=== PATIENT | female | born 1995 | race Caucasian/White ===

== ENCOUNTER 2020-03-09 10:03 | Outpatient (CLI) | payer MEDICAID, OTHER ==
[~2020-03-09] VITALS: Ht 157.5 cm; Wt 79.0 kg
== END 2020-03-09 12:00 | disposition home or self-care (01) ==
LOC: LDOP 10:03
PROVIDERS: ATTEND Obstetrics & Gynecology
DX: O26.893 Other specified pregnancy related conditions, third trimester (principal); R10.9 Unspecified abdominal pain; Z3A.37 37 weeks gestation of pregnancy
CPT/HCPCS: 59025; 99201; G0463

== ENCOUNTER 2020-03-14 22:50 | Outpatient (CLI) | payer MEDICAID | END 2020-03-15 01:00 | disposition home or self-care (01) | LOC: LDOP 22:50 | PROVIDERS: ATTEND Obstetrics & Gynecology | DX: O42.92 Full-term premature rupture of membranes, unspecified as to length of time between rupture and onset of labor (principal); R10.9 Unspecified abdominal pain; Z3A.38 38 weeks gestation of pregnancy | CPT/HCPCS: 59025; 84112; 99211; G0463 ==

== ENCOUNTER 2020-03-17 01:15 | Inpatient (IN) | payer MEDICAID ==
[~2020-03-17] VITALS: Ht 157.5 cm; Wt 80.0 kg
[2020-03-17] MEDS: D5%-LACTATED RINGERS 1,000 ML IV SCH ×2 (01:23→05:44)
[2020-03-17] MEDS ORDERED: LACTATED RINGERS 1,000 ML IV SCH ×2 (01:23→03:53)
[2020-03-17] MEDS ORDERED: FENTANYL/BUPIV./NS/PF 250 ML EPIDCONT SCH ×2 (01:23→03:53)
[2020-03-17] MEDS ORDERED: OXYTOCIN 30U/ 0.9% NaCL 500ML 500 ML IV ONE (01:23)
[2020-03-17] MEDS ORDERED: ONDANSETRON 2MG/ML, 2ML ONE (01:26)
[2020-03-17] MEDS ORDERED: NEWBORN KIT ONE (01:26)
[2020-03-17] MEDS ORDERED: OXYTOCIN 30U/ 0.9% NaCL 500ML 500 ML ONE ×2 (01:26→12:52)
[2020-03-17] MEDS ORDERED: FENTANYL PF 100 MCG/2ML ONE ×2 (01:26→02:24)
[2020-03-17] MEDS ORDERED: VANCOMYCIN PMX 1GM/200ML 200 ML IVPB SCH (01:30)
[2020-03-17] MEDS ORDERED: FENTANYL PF 100 MCG/2ML IVPush PRN (01:30)
[2020-03-17] MEDS ORDERED: TERBUTALINE 1 MG/ML, 1ML SQ PRN (01:30)
[2020-03-17] MEDS ORDERED: TERBUTALINE 1 MG/ML, 1ML IVPush PRN (01:30)
[2020-03-17] MEDS ORDERED: CALCIUM CARBONATE 500 MG TAB.CHEW PO PRN (01:30)
[2020-03-17] MEDS ORDERED: ONDANSETRON 2MG/ML, 2ML IVPush PRN (01:30)
[2020-03-17] MEDS ORDERED: LACTATED RINGERS 1,000 ML IVBOLUS PRN ×2 (01:30→04:00)
[2020-03-17] MEDS ORDERED: EPHEDRINE 50 MG/ML, 1ML IVPush PRN ×2 (01:30→04:00)
[2020-03-17] MEDS ORDERED: FENTANYL PF 100 MCG/2ML IV PRN (01:30)
[2020-03-17] MEDS: LACTATED RINGERS 1,000 ML IV SCH ×3 (01:35→12:10)
[2020-03-17 01:56] VITALS: BP 135/82
[2020-03-17] MEDS ORDERED: DIPHENHYDRAMINE 50 MG/ML, 1ML ONE (02:05)
[2020-03-17 02:09] LABS: MEAN CORPUSCULAR HEMOGLOBIN 28.2 pg (27.0-34.8); MEAN CORPUSCULAR HGB CONC 33.2 g/dL (32.4-35.8); MEAN CORPUSCULAR VOLUME 84.8 fL (80-100); MEAN PLATELET VOLUME 11.2 fL (7.4-10.4); PLATELET COUNT 264 x10^3/uL (130-400); RED BLOOD COUNT 3.79 x10^6/uL (3.82-5.3); RED CELL DISTRIBUTION WIDTH 16.5 % (9.6-15.2)
[2020-03-17 02:16] LABS: BASOPHILS # (AUTO) 0.03 x10^3/uL (0-0.1); BASOPHILS % (AUTO) 0 % (0-1); EOSINOPHILS # (AUTO) 0.03 x10^3/uL (0-0.4); EOSINOPHILS % (AUTO) 0 % (1-7); LYMPHOCYTES # (AUTO) 1.63 x10^3/uL (1-3.4); LYMPHOCYTES % (AUTO) 13 % (22-44); MD MORPH REVIEW ONLY; MONOCYTES # (AUTO) 0.48 x10^3/uL (0.2-0.8); MONOCYTES % (AUTO) 4 % (2-9); NEUTROPHILS # (AUTO) 10.67 x10^3/uL (1.8-6.8); NEUTROPHILS % (AUTO) 83 % (42-75)
[2020-03-17 02:17] LABS: ANISOCYTOSIS 1+
[2020-03-17 02:18] LABS: <PLATELET ESTIMATE> ADEQUATE; LARGE PLATELETS 1+
[2020-03-17] MEDS ORDERED: DIPHENHYDRAMINE 50 MG/ML, 1ML IVPush PRN (02:30)
[2020-03-17] MEDS ORDERED: BUPIVACAINE 0.25% ONE (03:55)
[2020-03-17] MEDS ORDERED: NALOXONE 0.4 MG/ML, 1ML IVPush PRN (04:00)
[2020-03-17] MEDS ORDERED: FENTANYL/BUPIV./NS/PF 250 ML EPIDCONT ONE (04:01)
[2020-03-17 05:06] VITALS: BP 136/60
[2020-03-17] MEDS: OXYTOCIN 30U/ 0.9% NaCL 500ML 500 ML IV SCH ×2 (12:45→22:43)
[2020-03-17] MEDS ORDERED: MISOPROSTOL 200 MCG TABLET PR PRN (14:00)
[2020-03-17] MEDS ORDERED: OXYcodone/APAP 5/325MG TABLET PO PRN (14:00)
[2020-03-17] MEDS ORDERED: CARBOPROST TROMETHAMINE 250 MCG/ML, 1ML IM PRN (14:00)
[2020-03-17] MEDS ORDERED: SIMETHICONE 80 MG CHEW TAB PO PRN (14:00)
[2020-03-17] MEDS: IBUPROFEN 600 MG TABLET PO PRN (14:29)
[2020-03-17] MEDS: OXYcodone/APAP 5/325MG TABLET PO PRN (14:30)
[2020-03-17 19:25] VITALS: BP 124/86
[2020-03-18] MEDS: IBUPROFEN 600 MG TABLET PO PRN ×2 (00:27→07:15)
[2020-03-18 00:58] VITALS: BP 128/87
[2020-03-18] MEDS: LACTATED RINGERS 1,000 ML IV SCH ×3 (01:23→17:23)
[2020-03-18 05:31] VITALS: BP 134/84
[2020-03-18 07:21] LABS: BASOPHILS # (AUTO) 0.05 x10^3/uL (0-0.1); BASOPHILS % (AUTO) 1 % (0-1); EOSINOPHILS # (AUTO) 0.06 x10^3/uL (0-0.4); EOSINOPHILS % (AUTO) 1 % (1-7); LYMPHOCYTES # (AUTO) 2.05 x10^3/uL (1-3.4); LYMPHOCYTES % (AUTO) 23 % (22-44); MD NO; MEAN CORPUSCULAR HEMOGLOBIN 28.2 pg (27.0-34.8); MEAN CORPUSCULAR HGB CONC 32.9 g/dL (32.4-35.8); MEAN CORPUSCULAR VOLUME 85.8 fL (80-100); MEAN PLATELET VOLUME 10.8 fL (7.4-10.4); MONOCYTES % (AUTO) 5 % (2-9); NEUTROPHILS # (AUTO) 6.23 x10^3/uL (1.8-6.8); NEUTROPHILS % (AUTO) 71 % (42-75); PLATELET COUNT 195 x10^3/uL (130-400); RED BLOOD COUNT 3.38 x10^6/uL (3.82-5.3); RED CELL DISTRIBUTION WIDTH 16.1 % (9.6-15.2)
[2020-03-18 07:25] VITALS: BP 132/91
[2020-03-18] MEDS: PRENATAL VIT/IRON/FA 1 EACH TABLET PO SCH (09:13)
[2020-03-18] MEDS: DOCUSATE 100 MG CAPSULE PO PRN ×2 (09:13→21:51)
[2020-03-18] MEDS: OXYTOCIN 30U/ 0.9% NaCL 500ML 500 ML IV SCH ×2 (09:35→19:34)
[2020-03-18 12:05] VITALS: BP 125/75
[2020-03-18 19:59] VITALS: BP 127/88
[2020-03-19] MEDS: PRENATAL VIT/IRON/FA 1 EACH TABLET PO SCH (07:28)
[2020-03-19] MEDS: DOCUSATE 100 MG CAPSULE PO PRN (07:28)
[2020-03-19] MEDS: IBUPROFEN 600 MG TABLET PO PRN (07:29)
[2020-03-19] MEDS: OXYcodone/APAP 5/325MG TABLET PO PRN (07:30)
[2020-03-19 08:21] VITALS: BP 115/82
[2020-03-19] MEDS ORDERED: IBUP-1223 PO (09:31)
[2020-03-19] MEDS ORDERED: DOCU-131 PO (09:32)
== END 2020-03-19 10:30 | disposition home or self-care (01) | DRG 807 ==
LOC: LDOP 01:15 → LDIP 01:23 → 2NW 14:07
PROVIDERS: ADMIT Obstetrics & Gynecology; ATTEND Obstetrics & Gynecology
PROC: 10E0XZZ Delivery of Products of Conception, External Approach (ICD-10-PCS; principal; 2020-03-17)
PROC: 10907ZC Drainage of Amniotic Fluid, Therapeutic from Products of Conception, Via Natural or Artificial Opening (ICD-10-PCS; 2020-03-17)
PROC: 3E0R3BZ Introduction of Anesthetic Agent into Spinal Canal, Percutaneous Approach (ICD-10-PCS; 2020-03-17)
PROC: 00HU33Z Insertion of Infusion Device into Spinal Canal, Percutaneous Approach (ICD-10-PCS; 2020-03-17)
DX: O99.824 Streptococcus B carrier state complicating childbirth (principal); Z37.0 Single live birth; O99.52 Diseases of the respiratory system complicating childbirth; O99.344 Other mental disorders complicating childbirth; J45.909 Unspecified asthma, uncomplicated; F32.9 Major depressive disorder, single episode, unspecified; Z3A.38 38 weeks gestation of pregnancy; Z91.040 Latex allergy status; Z88.1 Allergy status to other antibiotic agents; Z88.0 Allergy status to penicillin
CPT/HCPCS: 36415; J7121; 85025; 86592; 86850; 86900; G0378; J3010; J3370; J1200; J2590; J7120